=== PATIENT | female | born 1955 | race Caucasian/White ===

== ENCOUNTER → 2025-05-10 07:47 | Outpatient (REF) | payer MEDICARE, OTHER, SELFPAY ==
[2025-05-10] MEDS: AMINOPHYLLINE 75 MG IV (10:10)
--- NOTE | 2025-05-10 10:35 | PTCARENOTE ---
1035- Refer to Cardiac Services Record for notes, Aminophylline 75 m IV given per protocol for LexiScan (called in to room to administer for abdominal cramping and headache).
== END ==
LOC: RCS 07:47
PROVIDERS: ATTENDING PHYSICIAN Internal Medicine Interventional Cardiology; FAMILY PHYSICIAN Family Medicine
DX: R94.31 Abnormal electrocardiogram [ECG] [EKG] (principal); R06.02 Shortness of breath
CPT/HCPCS: 78452; 93017; A9500; J2785